=== PATIENT | female | born 1990 | race African-American/Black ===

== ENCOUNTER 2019-03-11 12:11 | Emergency (ER) | payer MEDICAID ==
[~2019-03-11] VITALS: Ht 170.2 cm; Wt 101.6 kg
[2019-03-11 12:41] LABS: Urine Bacteria FEW /hpf (None Seen); Urine Blood Negative /uL (Negative); Urine Mucus FEW (None Seen); Urine Specific Gravity 1.023 (1.001-1.035); Urine WBC 3 /hpf (0 - 5)
[2019-03-11 13:28] LABS: Basophils # (auto) 0.1 uL; Basophils % (auto) 1.2 % (0.0-2.0); Eosinophils # (auto) 0.2 uL; Eosinophils % (auto) 2.4 % (0.0-7.0); Hematocrit 39.7 % (36.0-46.0); Lymphocytes % (auto) 44.6 % (10.0-50.0); Mean Corpuscular Hemoglobin 28.9 pg (28.0-32.0); Mean Corpuscular Hgb Conc. 35.2 g/dL (32.0-36.0); Monocytes # (auto) 0.5 uL; Monocytes % (auto) 7.7 % (0.0-12.0); Neutrophils # (auto) 2.9 uL; Neutrophils % (auto) 44.1 % (37.0-80.0); Nucleated Red Blood Cells % 0.2 %; Platelet Count (auto) 246 10^3/uL (140-450); Red Blood Cells 4.84 10^6/uL (4.0-5.20); Red Cell Distribution Width 13.8 % (11.8-14.3); White Blood Cell 6.7 10^3/uL (4.4-10.8)
[2019-03-11 13:48] LABS: Albumin 3.3 g/dL (3.4-5.0); Calcium 8.6 mg/dL (8.5-10.1); Potassium 3.5 mmol/L (3.5-5.1)
[2019-03-11 13:53] LABS: BUN/Creatinine Ratio 12.2; Bilirubin, Total 0.3 mg/dL (0.2-1.0); Total Protein 7.7 g/dL (6.4-8.2)
[2019-03-11 14:22] VITALS: BP 112/61
== END 2019-03-11 17:41 | disposition home or self-care (01) ==
LOC: ER 12:18
DX: N83.202 Unspecified ovarian cyst, left side (principal); Z88.0 Allergy status to penicillin; Z88.6 Allergy status to analgesic agent
CPT/HCPCS: 36415; 76830; 76856; 80053; 81001; 81025; 84702; 85025

== ENCOUNTER → 2019-05-01 | Emergency (ER) | payer MEDICAID ==
[~2019-05-01] VITALS: Ht 170.2 cm; Wt 104.3 kg
[2019-05-01 17:13] VITALS: BP 119/85
== END | disposition home or self-care (01) ==
LOC: ER 17:05
DX: Z76.0 Encounter for issue of repeat prescription (principal); Z53.21 Procedure and treatment not carried out due to patient leaving prior to being seen by health care provider

== ENCOUNTER 2019-11-19 18:36 | Emergency (ER) | payer MEDICAID ==
[~2019-11-19] VITALS: Ht 170.2 cm; Wt 102.1 kg
[2019-11-19 18:53] VITALS: BP 135/87
== END 2019-11-19 22:12 | disposition home or self-care (01) ==
LOC: EDBD 18:36 → ER 18:36 → EDUNIT# 18:36 → ER 22:12
DX: S00.83XA Contusion of other part of head, initial encounter (principal); M54.2 Cervicalgia; M25.511 Pain in right shoulder; W01.0XXA Fall on same level from slipping, tripping and stumbling without subsequent striking against object, initial encounter; Y93.89 Activity, other specified; Y92.89 Other specified places as the place of occurrence of the external cause; Y99.8 Other external cause status
CPT/HCPCS: 70450; 72125; 73030

== ENCOUNTER 2019-12-10 16:34 | Emergency (ER) | payer MEDICAID ==
[~2019-12-10] VITALS: Ht 160 cm; Wt 101.6 kg
[2019-12-10 16:50] VITALS: BP 145/87
[2019-12-10 17:09] LABS: Urine Bacteria FEW /hpf (None Seen); Urine Blood Negative /uL (Negative); Urine Mucus FEW (None Seen); Urine Specific Gravity 1.023 (1.001-1.035); Urine WBC 5 /hpf (0 - 5)
== END 2019-12-10 17:19 | disposition left against medical advice (07) ==
LOC: ER 16:39
DX: R10.84 Generalized abdominal pain (principal); R11.2 Nausea with vomiting, unspecified; Z53.21 Procedure and treatment not carried out due to patient leaving prior to being seen by health care provider
CPT/HCPCS: 81001

== ENCOUNTER 2021-02-14 10:55 | Observation (INO) | payer MEDICAID ==
[2021-02-14] MEDS ORDERED: DULO60CA PO (12:14)
[2021-02-14] MEDS ORDERED: METO-159 PO (12:14)
[2021-02-14] MEDS ORDERED: ESZO3TAB53 PO (12:14)
[2021-02-14] MEDS ORDERED: ARIP1064 IM (12:14)
[2021-02-14] MEDS ORDERED: PRA1C PO (12:14)
[2021-02-14] MEDS ORDERED: PREN-96 PO (12:15)
== END 2021-02-14 12:45 | disposition home or self-care (01) ==
LOC: LDRP 10:55
PROVIDERS: ADMIT Obstetrics & Gynecology; ATTEND Obstetrics & Gynecology
DX: O26.892 Other specified pregnancy related conditions, second trimester (principal); R10.10 Upper abdominal pain, unspecified; R51.9 Headache, unspecified; O99.512 Diseases of the respiratory system complicating pregnancy, second trimester; J45.909 Unspecified asthma, uncomplicated; O99.342 Other mental disorders complicating pregnancy, second trimester; F32.9 Major depressive disorder, single episode, unspecified; F43.10 Post-traumatic stress disorder, unspecified; F20.9 Schizophrenia, unspecified; O99.352 Diseases of the nervous system complicating pregnancy, second trimester; G47.30 Sleep apnea, unspecified; O99.412 Diseases of the circulatory system complicating pregnancy, second trimester; I47.1 Supraventricular tachycardia; Z79.899 Other long term (current) drug therapy; Z3A.22 22 weeks gestation of pregnancy; W06.XXXA Fall from bed, initial encounter; Y93.89 Activity, other specified; Y92.009 Unspecified place in unspecified non-institutional (private) residence as the place of occurrence of the external cause
CPT/HCPCS: 59025; 76815; 81002; 94760; G0378

== ENCOUNTER 2021-04-05 12:57 | Observation (INO) | payer MEDICAID ==
[~2021-04-05] VITALS: Ht 170.2 cm; Wt 97.1 kg
[~2021-04-05 12:57] MED LIST: ARIP1064 IM; DULO60CA PO; ESZO3TAB53 PO; METO-159 PO; PRA1C PO; PREN-96 PO
[2021-04-05] MEDS ORDERED: LACTATED RINGER'S 1,000 ML IV ONE (14:15)
[2021-04-05] MEDS ORDERED: ACET300T4 PO (14:40)
[2021-04-05] MEDS ORDERED: TOPI100T29 PO (14:42)
== END 2021-04-05 16:17 | disposition home or self-care (01) ==
LOC: LDRP 12:57
PROVIDERS: ADMIT Specialist; ATTEND Specialist
DX: O26.893 Other specified pregnancy related conditions, third trimester (principal); O48.0 Post-term pregnancy; W18.39XA Other fall on same level, initial encounter; Y93.89 Activity, other specified; Y92.89 Other specified places as the place of occurrence of the external cause
CPT/HCPCS: 59025; 76815; 81002; 94760; G0378; 96360

== ENCOUNTER 2021-04-28 20:41 | Observation (INO) | payer MEDICAID ==
[~2021-04-28] VITALS: Ht 170.2 cm; Wt 99.8 kg
[~2021-04-28 20:41] MED LIST changes: +ACET300T4 PO; -PRA1C PO; +TOPI100T29 PO
== END 2021-04-28 23:00 | disposition home or self-care (01) ==
LOC: LDRP 20:41
PROVIDERS: ADMIT Specialist; ATTEND Specialist
DX: O99.891 Other specified diseases and conditions complicating pregnancy (principal); M79.642 Pain in left hand; M79.641 Pain in right hand; M79.672 Pain in left foot; M79.671 Pain in right foot; H53.8 Other visual disturbances; O62.9 Abnormality of forces of labor, unspecified; Z3A.32 32 weeks gestation of pregnancy
CPT/HCPCS: 59025; 81002; 82948; 82962; G0378

== ENCOUNTER 2021-06-22 10:00 | Emergency (ER) | payer MEDICAID ==
[~2021-06-22] VITALS: Ht 167.6 cm; Wt 96.6 kg
[2021-06-22 10:42] LABS: Urine Bacteria FEW /hpf (None Seen); Urine Blood Negative /uL (Negative); Urine Specific Gravity 1.011 (1.001-1.035); Urine WBC 2 /hpf (0 - 5)
[2021-06-22 11:12] VITALS: BP 107/80
== END 2021-06-22 11:38 | disposition home or self-care (01) ==
LOC: ER 10:00
DX: R30.0 Dysuria (principal); R35.0 Frequency of micturition; R39.15 Urgency of urination; Z79.899 Other long term (current) drug therapy; Z88.0 Allergy status to penicillin; Z88.2 Allergy status to sulfonamides; Z88.8 Allergy status to other drugs, medicaments and biological substances
CPT/HCPCS: 81001

== ENCOUNTER 2021-07-13 12:04 | Emergency (ER) | payer MEDICAID ==
[~2021-07-13] VITALS: Ht 170.2 cm; Wt 101.6 kg
[2021-07-13 13:51] VITALS: BP 116/83
== END 2021-07-13 13:57 | disposition home or self-care (01) ==
LOC: ER 12:04
DX: S09.90XA Unspecified injury of head, initial encounter (principal); Z79.899 Other long term (current) drug therapy; Z88.0 Allergy status to penicillin; Z88.2 Allergy status to sulfonamides; Z88.8 Allergy status to other drugs, medicaments and biological substances; W01.0XXA Fall on same level from slipping, tripping and stumbling without subsequent striking against object, initial encounter; Y93.89 Activity, other specified; Y92.89 Other specified places as the place of occurrence of the external cause; Y99.8 Other external cause status
CPT/HCPCS: 70450